=== PATIENT | female | born 1945 | race Caucasian/White ===

== ENCOUNTER 2020-07-12 16:09 | Inpatient (IN) ==
[2020-07-12] MEDS ORDERED: DILTIAZEM 50 MG/10 ML VIAL IV STA (16:46)
[2020-07-12 16:55] LABS: Basophils # 0.1 10*3/uL (0.0-0.2); Basophils % 1.1 % (0.0-0.8); Eosinophils # 0.3 10*3/uL (0.0-0.87); Eosinophils % 2.7 % (0.00-10.9); Hematocrit 31.6 VOL% (35.7-47.0); Hemoglobin 10.8 GM/DL (12.0-16.0); Immature Granulocytes % 0.5 %; Immature Granulocytes Absolute 0.06 #; Lymphocytes # 5.2 10*3/uL (1.4-4.0); Lymphocytes % 45.9 % (21.3-54.2); Mean Corpuscular HGB Conc 34.2 GM/DL (32-36); Mean Corpuscular Volume 95.5 FL (87-102); Mean Platelet Volume 8.4 FL (9.6-12.0); Monocytes % 10.3 % (1.7-12.7); Neutrophils % 39.5 % (38.7-73.9); Platelet Count 378 T/CUMM (130-400); Red Blood Count 3.31 MC/CUMM (3.8-5.5); Red Cell Distribution Width 12.9 % (9.3-17.3); White Blood Count 11.3 T/CUMM (4-12)
[2020-07-12] MEDS ORDERED: ONDANSETRON 4 MG/2 ML VIAL IV PRN (16:59)
[2020-07-12] MEDS ORDERED: POTASSIUM CHLORIDE 20 MEQ TABLET PO PRN (16:59)
[2020-07-12] MEDS ORDERED: MORPHINE 4 MG/1 ML VIAL IV PRN (16:59)
[2020-07-12] MEDS ORDERED: ZALEPLON 5 MG CAPSULE PO PRN (16:59)
[2020-07-12] MEDS ORDERED: SIMETHICONE CHEW 125 MG TABLET PO PRN (16:59)
[2020-07-12] MEDS ORDERED: MAGNESIUM SULF RIDER 4 GM in PREMIX 1 EACH IV PRN (16:59)
[2020-07-12] MEDS ORDERED: diphenhydrAMINE CAP 25 MG CAPSULE PO PRN (17:03)
[2020-07-12 17:09] LABS: Alanine Aminotransferase 16 U/L (13-56); Albumin 3.1 G/DL (3.4-5.0); Alkaline Phosphatase 89 U/L (45-117); Aspartate Amino Transferase 16 U/L (0-37); Bilirubin,Total < 0.39 MG/DL (0.2-1.0); Blood Urea Nitrogen 15 MG/DL (7-18); Calcium 10.1 MG/DL (8.5-10.1); Estimated Glom Filtration Rate 52 ML/MIN; Glucose 106 MG/DL (74-106); Osmolality,Calculated 260.8 MOS/KG (273-304); Total Protein 7.2 G/DL (6.4-8.3)
[2020-07-12 17:15] LABS: PT Patient Result 11.1 SECS (9.8-11.9); Partial Thromboplastin Time 27.9 SECS (23.9-33.8)
[2020-07-12 17:19] LABS: Thyroid Stimulating Hormone 1.12 uIU/ml (0.358-3.74)
[2020-07-12] MEDS: dilTIAZem Drip 125 MG/125 ML PREMIX IV SCH (17:22)
[2020-07-12 17:54] LABS: Eosinophils 4 % (0-10); Lymphocytes 56 % (20-55); Segmented Neutrophils 36 % (50-85); Total Cells Counted 100
[2020-07-12 17:56] LABS: Bacteria,Urine Occasional /HPF (Few); Bilirubin,Urine Negative (Negative); Blood, Urine Negative (Negative); Glucose,Urine (UA) Negative (Negative); Ketones,Urine Negative (Negative); Nitrite,Urine Negative (Negative); Protein,Urine Negative; Squamous Epithelial Cell,Urine Occasional /HPF (0-10); Urine Appearance Clear (Clear); Urine Color Yellow (Yellow); Urine Specific Gravity 1.005 (1.001-1.035); Urine Urobilinogen 0.2 EU/DL (0.2-1.0)
[2020-07-12 18:38] LABS: Barbiturates Screen,Urine Negative (Negative); Benzodiazepines Screen,Urine Negative (Negative); Cannabinoid Screen,Urine Negative (Negative); Opiate Screen,Urine Negative (Negative); Phencyclidine Screen,Urine Negative (Negative)
[2020-07-12] MEDS: ENOXAPARIN 100 MG/ML SYRINGE SUBCUT SCH (19:11)
[2020-07-12] MEDS: AMITRIPTYLINE 25 MG TABLET PO SCH (21:55)
[2020-07-12] MEDS: PHENYTOIN ER 100 MG CAPSULE PO SCH (21:55)
[2020-07-12] MEDS: GABAPENTIN 100 MG CAPSULE PO SCH (21:55)
[2020-07-13 05:30] LABS: Basophils # 0.1 10*3/uL (0.0-0.2); Basophils % 0.9 % (0.0-0.8); Eosinophils # 0.3 10*3/uL (0.0-0.87); Eosinophils % 3.1 % (0.00-10.9); Hematocrit 28.3 VOL% (35.7-47.0); Hemoglobin 9.6 GM/DL (12.0-16.0); Immature Granulocytes % 0.4 %; Immature Granulocytes Absolute 0.04 #; Lymphocytes % 51.6 % (21.3-54.2); Mean Corpuscular HGB Conc 33.9 GM/DL (32-36); Mean Corpuscular Volume 96.3 FL (87-102); Mean Platelet Volume 8.7 FL (9.6-12.0); Monocytes % 9.6 % (1.7-12.7); Neutrophils % 34.4 % (38.7-73.9); Platelet Count 321 T/CUMM (130-400); Red Blood Count 2.94 MC/CUMM (3.8-5.5); Red Cell Distribution Width 12.9 % (9.3-17.3); White Blood Count 9.7 T/CUMM (4-12)
[2020-07-13] MEDS: ENOXAPARIN 100 MG/ML SYRINGE SUBCUT SCH (05:41)
[2020-07-13 05:56] LABS: Albumin 2.7 G/DL (3.4-5.0); Bilirubin,Total 0.5 MG/DL (0.2-1.0); Calcium 9.6 MG/DL (8.5-10.1); Osmolality,Calculated 266.5 MOS/KG (273-304); Risk Ratio 3.18; Total Protein 6.2 G/DL (6.4-8.3); VLDL CHOLESTEROL 13.8 MG/DL
[2020-07-13 06:12] LABS: Eosinophils 2 % (0-10); Hypochromasia 1+; Lymphocytes 41 % (20-55); Microcytosis 1+; Platelet Estimate Adequate; Segmented Neutrophils 47 % (50-85); Total Cells Counted 100
[2020-07-13] MEDS ORDERED: MAGNESIUM SULF RIDER 4 GM in PREMIX 1 EACH IV PRN (08:04)
[2020-07-13] MEDS ORDERED: MAGNESIUM SULF RIDER 2 GM in PREMIX 1 EACH IV PRN (08:04)
[2020-07-13] MEDS: dilTIAZem Drip 125 MG/125 ML PREMIX IV SCH (08:11)
[2020-07-13 09:32] LABS: Troponin I < 0.015 NG/ML (0.00-0.045)
[2020-07-13] MEDS: hydroCHLOROthiazide 25 MG TABLET PO SCH (09:45)
[2020-07-13] MEDS: DILTIAZEM CD 120 MG CAPSULE PO SCH ×2 (09:45→21:38)
[2020-07-13] MEDS: APIXABAN 5 MG TABLET PO SCH ×2 (09:45→21:38)
[2020-07-13] MEDS: POTASSIUM CHLORIDE 20 MEQ TABLET PO SCH (09:46)
[2020-07-13] MEDS: AMITRIPTYLINE 25 MG TABLET PO SCH ×2 (09:46→21:38)
[2020-07-13] MEDS: PHENYTOIN ER 100 MG CAPSULE PO SCH ×2 (09:46→21:38)
[2020-07-13] MEDS: SERTRALINE 100 MG TABLET PO SCH (09:46)
[2020-07-13] MEDS: CLOPIDOGREL 75 MG TABLET PO SCH (09:46)
[2020-07-13] MEDS: PANTOPRAZOLE 40 MG TABLET PO SCH (09:48)
[2020-07-13 12:25] LABS: Troponin I < 0.015 NG/ML (0.00-0.045)
[2020-07-13] MEDS: MAGNESIUM SULF RIDER 2 GM in PREMIX 1 EACH IV PRN (14:05)
[2020-07-13] MEDS: GABAPENTIN 100 MG CAPSULE PO SCH (21:38)
[2020-07-14] MEDS: dilTIAZem Drip 125 MG/125 ML PREMIX IV SCH ×2 (03:33→11:24)
[2020-07-14 05:38] LABS: Basophils # 0.1 10*3/uL (0.0-0.2); Eosinophils # 0.3 10*3/uL (0.0-0.87); Eosinophils % 2.5 % (0.00-10.9); Hematocrit 29.8 VOL% (35.7-47.0); Hemoglobin 10.2 GM/DL (12.0-16.0); Immature Granulocytes % 0.5 %; Immature Granulocytes Absolute 0.05 #; Lymphocytes # 4.5 10*3/uL (1.4-4.0); Lymphocytes % 41.6 % (21.3-54.2); Mean Corpuscular HGB Conc 34.2 GM/DL (32-36); Mean Corpuscular Volume 96.1 FL (87-102); Mean Platelet Volume 8.9 FL (9.6-12.0); Monocytes % 9.1 % (1.7-12.7); Neutrophils % 45.3 % (38.7-73.9); Platelet Count 327 T/CUMM (130-400); Red Cell Distribution Width 13.2 % (9.3-17.3); White Blood Count 10.9 T/CUMM (4-12)
[2020-07-14 06:02] LABS: Calcium 9.9 MG/DL (8.5-10.1); Osmolality,Calculated 269.2 MOS/KG (273-304)
[2020-07-14] MEDS ORDERED: DIGOXIN 0.5 MG/2 ML AMP IV ONE ×2 (08:11→14:09)
[2020-07-14] MEDS: ASCORBIC ACID 500 MG TABLET PO SCH ×2 (08:45→20:59)
[2020-07-14] MEDS: AMITRIPTYLINE 25 MG TABLET PO SCH ×2 (08:45→20:59)
[2020-07-14] MEDS: POTASSIUM CHLORIDE 20 MEQ TABLET PO SCH (08:45)
[2020-07-14] MEDS: SERTRALINE 100 MG TABLET PO SCH (08:45)
[2020-07-14] MEDS: hydroCHLOROthiazide 25 MG TABLET PO SCH (08:45)
[2020-07-14] MEDS: PHENYTOIN ER 100 MG CAPSULE PO SCH ×2 (08:46→20:59)
[2020-07-14] MEDS: PANTOPRAZOLE 40 MG TABLET PO SCH (08:46)
[2020-07-14] MEDS: DILTIAZEM CD 120 MG CAPSULE PO SCH ×3 (08:46→21:00)
[2020-07-14] MEDS: APIXABAN 5 MG TABLET PO SCH ×2 (08:46→20:59)
[2020-07-14] MEDS: CLOPIDOGREL 75 MG TABLET PO SCH (08:46)
[2020-07-14] MEDS ORDERED: LACTULOSE 20 GM/30 ML UDCUP PO ONE (10:08)
[2020-07-14] MEDS: METOPROLOL TARTRATE 25 MG TABLET PO SCH ×2 (11:24→21:00)
[2020-07-14] MEDS: GABAPENTIN 100 MG CAPSULE PO SCH (21:00)
[2020-07-15] MEDS: dilTIAZem Drip 125 MG/125 ML PREMIX IV SCH (01:29)
[2020-07-15 04:58] LABS: Basophils # 0.1 10*3/uL (0.0-0.2); Basophils % 0.6 % (0.0-0.8); Eosinophils # 0.3 10*3/uL (0.0-0.87); Eosinophils % 2.6 % (0.00-10.9); Hematocrit 27.9 VOL% (35.7-47.0); Hemoglobin 9.4 GM/DL (12.0-16.0); Immature Granulocytes % 0.6 %; Immature Granulocytes Absolute 0.06 #; Lymphocytes # 3.9 10*3/uL (1.4-4.0); Lymphocytes % 36.7 % (21.3-54.2); Mean Corpuscular HGB Conc 33.7 GM/DL (32-36); Mean Corpuscular Volume 96.2 FL (87-102); Mean Platelet Volume 8.6 FL (9.6-12.0); Monocytes % 10.4 % (1.7-12.7); Neutrophils % 49.1 % (38.7-73.9); Platelet Count 316 T/CUMM (130-400); Red Cell Distribution Width 13.2 % (9.3-17.3); White Blood Count 10.7 T/CUMM (4-12)
[2020-07-15 05:08] LABS: Calcium 9.8 MG/DL (8.5-10.1); Osmolality,Calculated 273.1 MOS/KG (273-304)
[2020-07-15 05:25] LABS: Band Neutrophils 1 % (0-10); Eosinophils 1 % (0-10); Hypochromasia 1+; Lymphocytes 27 % (20-55); Microcytosis 1+; Platelet Estimate Adequate; Segmented Neutrophils 59 % (50-85); Total Cells Counted 100
[2020-07-15] MEDS: MAGNESIUM SULF RIDER 2 GM in PREMIX 1 EACH IV PRN (09:49)
[2020-07-15] MEDS: SERTRALINE 100 MG TABLET PO SCH (09:54)
[2020-07-15] MEDS: hydroCHLOROthiazide 25 MG TABLET PO SCH (09:54)
[2020-07-15] MEDS: CLOPIDOGREL 75 MG TABLET PO SCH (09:54)
[2020-07-15] MEDS: PHENYTOIN ER 100 MG CAPSULE PO SCH ×2 (09:54→21:21)
[2020-07-15] MEDS: AMITRIPTYLINE 25 MG TABLET PO SCH ×2 (09:55→21:21)
[2020-07-15] MEDS: POTASSIUM CHLORIDE 20 MEQ TABLET PO SCH (09:55)
[2020-07-15] MEDS: ASCORBIC ACID 500 MG TABLET PO SCH ×2 (09:55→21:21)
[2020-07-15] MEDS: APIXABAN 5 MG TABLET PO SCH ×2 (09:55→21:21)
[2020-07-15] MEDS: PANTOPRAZOLE 40 MG TABLET PO SCH (09:56)
[2020-07-15] MEDS: DILTIAZEM CD 180 MG CAPSULE PO SCH ×2 (09:56→21:21)
[2020-07-15] MEDS: DILTIAZEM CD 120 MG CAPSULE PO SCH (09:59)
[2020-07-15] MEDS: METOPROLOL TARTRATE 25 MG TABLET PO SCH ×3 (09:59→21:21)
[2020-07-15] MEDS: DIGOXIN 0.125 MG TABLET PO SCH (12:47)
[2020-07-15] MEDS: GABAPENTIN 100 MG CAPSULE PO SCH (21:21)
[2020-07-16] MEDS: dilTIAZem Drip 125 MG/125 ML PREMIX IV SCH (02:04)
[2020-07-16 05:47] LABS: Basophils # 0.1 10*3/uL (0.0-0.2); Basophils % 0.7 % (0.0-0.8); Eosinophils # 0.3 10*3/uL (0.0-0.87); Hematocrit 28.3 VOL% (35.7-47.0); Hemoglobin 9.7 GM/DL (12.0-16.0); Immature Granulocytes % 0.5 %; Immature Granulocytes Absolute 0.06 #; Lymphocytes # 4.4 10*3/uL (1.4-4.0); Lymphocytes % 38.7 % (21.3-54.2); Mean Corpuscular HGB Conc 34.3 GM/DL (32-36); Mean Corpuscular Volume 96.3 FL (87-102); Mean Platelet Volume 8.5 FL (9.6-12.0); Monocytes % 9.4 % (1.7-12.7); Neutrophils % 47.7 % (38.7-73.9); Platelet Count 319 T/CUMM (130-400); Red Blood Count 2.94 MC/CUMM (3.8-5.5); Red Cell Distribution Width 13.2 % (9.3-17.3); White Blood Count 11.5 T/CUMM (4-12)
[2020-07-16 06:09] LABS: Atypical Lymphocytes Few; Eosinophils 6 % (0-10); Lymphocytes 38 % (20-55); Segmented Neutrophils 52 % (50-85); Total Cells Counted 100
[2020-07-16 06:10] LABS: Hypochromasia 1+; Microcytosis 1+
[2020-07-16 06:11] LABS: Platelet Estimate Normal
[2020-07-16 12:55] VITALS: BP 155/77
[2020-07-16] MEDS: AMITRIPTYLINE 25 MG TABLET PO SCH (13:49)
[2020-07-16] MEDS: ASCORBIC ACID 500 MG TABLET PO SCH (13:49)
[2020-07-16] MEDS: DIGOXIN 0.125 MG TABLET PO SCH (13:49)
[2020-07-16] MEDS: DILTIAZEM CD 180 MG CAPSULE PO SCH (13:49)
[2020-07-16] MEDS: POTASSIUM CHLORIDE 20 MEQ TABLET PO SCH (13:49)
[2020-07-16] MEDS: hydroCHLOROthiazide 25 MG TABLET PO SCH (13:50)
[2020-07-16] MEDS: PANTOPRAZOLE 40 MG TABLET PO SCH (13:50)
[2020-07-16] MEDS: APIXABAN 5 MG TABLET PO SCH (13:50)
[2020-07-16] MEDS: CLOPIDOGREL 75 MG TABLET PO SCH (13:50)
[2020-07-16] MEDS: SERTRALINE 100 MG TABLET PO SCH (13:50)
[2020-07-16] MEDS: METOPROLOL TARTRATE 25 MG TABLET PO SCH (13:50)
[2020-07-16] MEDS: PHENYTOIN ER 100 MG CAPSULE PO SCH (13:56)
[2020-07-16] MEDS ORDERED: DILTIAZEM CD 180 MG CAPSULE PO SCH (21:00)
== END 2020-07-16 15:34 | disposition home or self-care (01) | DRG 309 ==
LOC: N.ED 16:09 → N.EDINP 16:09 → N.TELES 18:20
PROVIDERS: ADMIT Internal Medicine Cardiovascular Disease; ATTEND Internal Medicine Cardiovascular Disease